=== PATIENT | male | born 1950 ===

== ENCOUNTER 2017-02-10 20:04 | Inpatient (IN) | payer MEDICARE, OTHER ==
[2017-02-10] MEDS ORDERED: AMIODARONE HCL200 M1 PO (20:37)
[2017-02-10] MEDS ORDERED: LIPITOR40 M1 PO (20:38)
[2017-02-10] MEDS ORDERED: ZEBETA10 M1 PO (20:38)
[2017-02-10] MEDS ORDERED: ASPIRIN81 M1 PO (20:38)
[2017-02-10] MEDS ORDERED: LOTRIMIN AF12 GM TOP (20:40)
[2017-02-10] MEDS ORDERED: NEURONTIN300 M1 PO (20:40)
[2017-02-10] MEDS ORDERED: HUMALOG100 UNITS/ SC ×2 (20:41)
[2017-02-10] MEDS ORDERED: HYDRALAZINE HCL50 M1 PO (20:42)
[2017-02-10] MEDS ORDERED: ISOSORBIDE DINI20 M1 PO (20:42)
[2017-02-10] MEDS ORDERED: LANTUS100 UNITS/ SC (20:43)
[2017-02-10] MEDS ORDERED: METOLAZONE2.5 M1 PO (20:45)
[2017-02-10] MEDS ORDERED: NITROSTAT0.4 M1 SL (20:47)
[2017-02-10] MEDS ORDERED: OMEPRAZOLE40 M2 PO (20:47)
[2017-02-10] MEDS ORDERED: DEMADEX20 M1 PO (20:48)
[2017-02-11 05:52] LABS: BASO % 0.6 % (0-2); EOSINOPHIL ABSOLUTE COUNT 0.1 tho/cmm (0.0-0.7); HCT-HEMATOCRIT 33.7 % (36.0-53.5); HGB-HEMOGLOBIN 11.2 gm/dl (13.5-17.0); IMMATURE GRANULOCYTES ABSOLUTE 0.01 tho/cmm (0-0.03); IMMATURE GRANULOCYTES PERCENT 0.1 % (0-0.3); LYMPH % 22.9 % (20-45); LYMPH ABSOLUTE COUNT 1.6 tho/cmm (0.8-4.5); MCH (MEAN CORPUSCULAR HGB) 28.6 pg (28.0-32.0); MCHC MEAN CORPUSCULAR HGB CONC 33.2 % (32.0-36.0); MCV (MEAN CELL VOLUME) 86.2 fl (82.0-96.0); MEAN PLATELET VOLUME 9.2 cmc (9.4-12.4); MONO % 5.8 % (0-12); MONOCYTE ABSOLUTE COUNT 0.4 tho/cmm (0.0-1.2); NEUTROPHIL ABSOLUTE COUNT 4.9 tho/cmm (1.6-8.0); NEUTROPHIL-AUTOMATED 4.9 tho/cmm (1.6-8.0); NEUTROPHILS % 68.6 % (40-80); PLATELET COUNT 188 tho/cmm (150-450); RED BLOOD COUNT 3.91 mil/cmm (4.40-5.70); WHITE BLOOD COUNT 7.1 tho/cmm (4.0-10.0)
[2017-02-11 06:12] LABS: ALB/GLOB RATIO 0.7 (0.8-2.0); ALBUMIN 3.1 g/dl (3.5-5.0); ALKALINE PHOSPHATASE 103 U/L (33-138); ALT/SGPT 17 U/L (12-78); AMYLASE 34 U/L (20-90); ANION GAP 10 mmol/L (0-20); AST/SGOT 8 U/L (10-40); BILIRUBIN,TOTAL 0.4 mg/dl (0.0-1.5); BLOOD UREA NITROGEN 63 mg/dl (6-24); CALCIUM 9.3 mg/dl (8.5-10.5); CARBON DIOXIDE-VENOUS 35 mmol/L (22-32); CHLORIDE 96 mmol/l (96-110); CREATININE 2.72 mg/dl (0.60-1.30); GLUCOSE 305 mg/dL (70-110); LIPASE 274 U/L (73-393); MAGNESIUM 2.5 mg/dl (1.8-2.6); PHOSPHOROUS 3.2 mg/dl (2.5-4.9); POTASSIUM 3.2 mmol/L (3.7-5.1); SODIUM 138 mmol/L (135-145); eGFR VALUE FOR BLACK 27 mL/Min
[2017-02-11 14:11] LABS: URINE APPEARANCE CLEAR; URINE BILIRUBIN NEGATIVE (NEG); URINE BLOOD NEGATIVE (NEG); URINE COLOR PALE YELLOW; URINE GLUCOSE (UA) NEGATIVE (NEG); URINE KETONE NEGATIVE (NEG); URINE LEUKOCYTE ESTERASE NEGATIVE (NEG); URINE NITRITE NEGATIVE (NEG); URINE PROTEIN MODERATE (NEG)
[2017-02-11 14:25] LABS: URINE EPITHELIAL CELLS 0-2 /[HPF] (0-10); URINE WBC 0 /[HPF] (0-5)
[2017-02-11 14:26] LABS: URINE RBC 0-1 /[HPF] (0-5)
[2017-02-11 14:28] LABS: URINE TOTAL PROTEIN-RANDOM 20.7 mg/dl (<11.8)
[2017-02-11 18:47] LABS: URINE PRT/CR RATIO 0.35 Ratio (0.0-0.20)
[2017-02-12 05:03] LABS: ANION GAP 13 mmol/L (0-20); BLOOD UREA NITROGEN 66 mg/dl (6-24); CALCIUM 8.9 mg/dl (8.5-10.5); CARBON DIOXIDE-VENOUS 32 mmol/L (22-32); CHLORIDE 96 mmol/l (96-110); CREATININE 3.01 mg/dl (0.60-1.30); FERRITIN 10 ng/ml (22-388); GLUCOSE 359 mg/dL (70-110); MAGNESIUM 2.2 mg/dl (1.8-2.6); PHOSPHOROUS 3.5 mg/dl (2.5-4.9); POTASSIUM 3.8 mmol/L (3.7-5.1); SODIUM 137 mmol/L (135-145); eGFR VALUE FOR BLACK 24 mL/Min
[2017-02-12 05:05] LABS: IRON 61 ug/dl (49-181); IRON BINDING CAPACITY 293 ug/dl (250-450)
[2017-02-13 05:33] LABS: BASO % 0.5 % (0-2); EOSINOPHIL ABSOLUTE COUNT 0.1 tho/cmm (0.0-0.7); HCT-HEMATOCRIT 32.9 % (36.0-53.5); IMMATURE GRANULOCYTES ABSOLUTE 0.01 tho/cmm (0-0.03); IMMATURE GRANULOCYTES PERCENT 0.2 % (0-0.3); LYMPH % 18.1 % (20-45); LYMPH ABSOLUTE COUNT 1.1 tho/cmm (0.8-4.5); MCH (MEAN CORPUSCULAR HGB) 28.1 pg (28.0-32.0); MCHC MEAN CORPUSCULAR HGB CONC 33.4 % (32.0-36.0); MCV (MEAN CELL VOLUME) 83.9 fl (82.0-96.0); MONO % 9.7 % (0-12); MONOCYTE ABSOLUTE COUNT 0.6 tho/cmm (0.0-1.2); NEUTROPHIL ABSOLUTE COUNT 4.2 tho/cmm (1.6-8.0); NEUTROPHIL-AUTOMATED 4.2 tho/cmm (1.6-8.0); NEUTROPHILS % 69.5 % (40-80); PLATELET COUNT 171 tho/cmm (150-450); RED BLOOD COUNT 3.92 mil/cmm (4.40-5.70); RED CELL DISTRIBUTION WIDTH 14.1 % (12.4-16.4); WHITE BLOOD COUNT 6.1 tho/cmm (4.0-10.0)
[2017-02-13 05:44] LABS: ANION GAP 12 mmol/L (0-20); BLOOD UREA NITROGEN 69 mg/dl (6-24); CARBON DIOXIDE-VENOUS 32 mmol/L (22-32); CHLORIDE 96 mmol/l (96-110); CREATININE 2.97 mg/dl (0.60-1.30); GLUCOSE 225 mg/dL (70-110); MAGNESIUM 2.3 mg/dl (1.8-2.6); POTASSIUM 3.1 mmol/L (3.7-5.1); SODIUM 137 mmol/L (135-145); eGFR VALUE FOR BLACK 24 mL/Min
[2017-02-14 06:05] LABS: ALBUMIN 3.1 g/dl (3.5-5.0); ANION GAP 11 mmol/L (0-20); BLOOD UREA NITROGEN 71 mg/dl (6-24); CALCIUM 9.1 mg/dl (8.5-10.5); CARBON DIOXIDE-VENOUS 32 mmol/L (22-32); CHLORIDE 98 mmol/l (96-110); CREATININE 2.96 mg/dl (0.60-1.30); GLUCOSE 179 mg/dL (70-110); PHOSPHOROUS 4.4 mg/dl (2.5-4.9); POTASSIUM 3.3 mmol/L (3.7-5.1); SODIUM 138 mmol/L (135-145); eGFR VALUE FOR BLACK 25 mL/Min
[2017-02-14] MEDS ORDERED: NORVASC2.5 M1 PO (16:15)
[2017-02-14] MEDS ORDERED: POTASSIUM CHLO20 ME3 PO (16:15)
[2017-02-14] MEDS ORDERED: IRON325 M3 PO (16:17)
[2017-02-14] MEDS ORDERED: ISORDIL40 M1 PO (16:17)
[2017-02-14] MEDS ORDERED: LANTUS100 UNITS/ SC (16:18)
[2017-02-14] MEDS ORDERED: HUMALOG100 UNITS/ SC (16:18)
[2017-02-14] MEDS ORDERED: HYDRALAZINE HCL50 M1 PO (16:19)
== END 2017-02-14 17:35 | DRG 684 ==
LOC: 5WE 20:04 → PCUB 02-11 00:34
PROVIDERS: Internal Medicine; Internal Medicine Nephrology; Registered Nurse; ADMIT Internal Medicine
DX: N17.9 Acute kidney failure, unspecified (principal); I12.9 Hypertensive chronic kidney disease with stage 1 through stage 4 chronic kidney disease, or unspecified chronic kidney disease; N18.9 Chronic kidney disease, unspecified; D64.9 Anemia, unspecified
CPT/HCPCS: A9500; J1650; J1756; J1815; J2785; J7050